=== PATIENT | male | born 1965 | race Caucasian/White ===

== ENCOUNTER → 2016-09-15 | Outpatient (CLI) | payer MEDICAID ==
--- NOTE | 2016-09-15 13:33 | RADIOLOGY REPORT (SQ) ---
EXAM DESCRIPTION: NM GASTRIC EMPTYING STUDY COMPLETED DATE/TIME: 09/15/2016 1:01 pm REASON FOR STUDY: VOMITING, GASTRO ESOPHAGEAL REFLUX DISEASE WITHOUT ESOPHAGITIS K21.9 GASTRO-ESOPH AGEAL REFLUX DISEASE WITHOUT ESOPHAGITIS R11.11 VOMITING WITHOUT NAUSEA R10.13 EPIGASTRIC PAIN COMPARISON: None. RADIONUCLIDE AND DOSE: 2 millicuries Tc-99m Sulfur Colloid. The route of agent administration: Oral. TECHNIQUE: Serial images acquired to 90 minutes with each image recorded over a 2-minute time frame. Image intensity values plotted with respect to time with linear regression algorithm. LIMITATIONS: None. FINDINGS: CALCULATED VALUE: 92.1 % at 4 hours. NORMAL VALUE: Greater than 90% emptying at 240 minutes. OTHER: No other significant finding. IMPRESSION: NORMAL GASTRIC EMPTYING. TECHNICAL DOCUMENTATION: JOB ID: [id number] [employer]- All Rights Reserved
== END ==
LOC: RAD 07:39
PROVIDERS: ATTEND Internal Medicine Gastroenterology
DX: R11.11 Vomiting without nausea (principal); K21.9 Gastro-esophageal reflux disease without esophagitis; R10.13 Epigastric pain
CPT/HCPCS: 78264; A9541

== ENCOUNTER 2017-04-09 07:10 | Emergency (ER) | payer MEDICAID ==
[2017-04-09 08:22] LABS: ABSOLUTE EOSINOPHILS # (AUTO) 0.1 10^3/uL (0.0-0.6); ABSOLUTE LYMPHOCYTES (AUTO) 1.8 10^3/uL (0.5-4.7); ABSOLUTE MONOCYTES (AUTO) 0.4 10^3/uL (0.1-1.4); ABSOLUTE NEUT (AUTO) 5.1 10^3/uL (1.7-8.2); BASOPHILS % (AUTO) 0.6 % (0-2); EOSINOPHILS % (AUTO) 1.2 % (0-6); HEMATOCRIT 40.6 % (37.9-51.0); HEMOGLOBIN 13.8 g/dL (13.5-17.0); LYMPHOCYTES % (AUTO) 23.7 % (13-45); MEAN CORPUSCULAR HEMOGLOBIN 29.5 pg (27.0-33.4); MEAN CORPUSCULAR VOLUME 87 fl (80-97); PLATELET COUNT 260 10^3/uL (150-450); RED BLOOD COUNT 4.69 10^6/uL (4.35-5.55); RED CELL DISTRIBUTION WIDTH 16.1 % (11.5-14.0); SEGMENTED NEUTROPHILS % (AUTO) 68.5 % (42-78); TOTAL CELLS COUNTED % (AUTO) 100 %; WHITE BLOOD COUNT 7.4 10^3/uL (4.0-10.5)
[2017-04-09 08:35] LABS: ALANINE AMINOTRANSFERASE 42 U/L (21-72); ALBUMIN 3.8 g/dL (3.5-5.0); ALKALINE PHOSPHATASE 115 U/L (38-126); ANION GAP 13 (5-19); ASPARTATE AMINO TRANSFERASE 31 U/L (17-59); BILIRUBIN,DIRECT 0.3 mg/dL (0.0-0.4); BILIRUBIN,TOTAL 0.8 mg/dL (0.2-1.3); BLOOD UREA NITROGEN 17 mg/dL (7-20); CALCIUM 9.1 mg/dL (8.4-10.2); CARBON DIOXIDE 28 mmol/L (22-30); CHLORIDE 103 mmol/L (98-107); CREATINE KINASE 54 U/L (55-170); GLUCOSE 120 mg/dL (75-110); MAGNESIUM 2.1 mg/dL (1.6-2.3); SODIUM 143.7 mmol/L (137-145); TOTAL PROTEIN 6.9 g/dL (6.3-8.2)
[2017-04-09 08:36] LABS: POTASSIUM 2.7 mmol/L (3.6-5.0)
[2017-04-09 08:46] LABS: CREATINE KINASE MB 0.48 ng/mL (<4.55)
[2017-04-09 08:52] LABS: TROPONIN I < 0.012 ng/mL
[2017-04-09] MEDS ORDERED: POTASSI CL 20 MEQ/50 ML RIDER 20 MEQ/50 ML RTUPB IV ONE (09:03)
[2017-04-09] MEDS ORDERED: POTASSIUM CHLORIDE 10 MEQ TABLET.SA PO ONE (09:03)
--- NOTE | 2017-04-09 09:35 | EKG REPORT ---
SEVERITY:- ABNORMAL ECG - SINUS RHYTHM NONSPECIFIC INTRAVENTRICULAR CONDUCTION DELAY : Confirmed by: Carlos Ferguson MD 09-Apr-2017 09:34:17
--- NOTE | 2017-04-09 10:30 | ER Document Report ---
ED General - General Chief Complaint: Abnormal Lab Results Stated Complaint: POSSIBLE SYNCOPAL EPISODES Time Seen by Provider: 04/09/17 07:35 TRAVEL OUTSIDE OF THE [place] IN LAST 30 DAYS: No - HPI Patient complains to provider of: Chronic low potassium Notes: Patient coming in for chronic low potassium. Patient states is been ongoing issue patient is on multiple diuretics metolazone or lactone and Lasix. Patient states he is currently taking replacement potassium however continues to be low. Patient is when he feels like he does get a little lightheaded dizzy has had syncopal episodes in the past. Upon my evaluation patient otherwise is resting calmly. Patient states he was notified by his physicians at [facility] to come to the ER last night however did not have a ride for sure that this morning. Patient states he was told to come for critically low potassium. Patient denies any fevers chills nausea vomiting diarrhea changes medications. Patient states he is waiting to see a finish rolls operator for further evaluation. - Related Data Allergies/Adverse Reactions: No Known Allergies Allergy (Unverified 11/04/14 11:42) Past Medical History - Social History Smoking Status: Never Smoker Frequency of alcohol use: Occasional Family History: Reviewed & Not Pertinent Patient has suicidal ideation: No Patient has homicidal ideation: No - Past Medical History Cardiac Medical History: Reports: Hx Heart Attack - 2012, Hx Hypertension Pulmonary Medical History: Denies: Hx Asthma Neurological Medical History: Reports: Hx Seizures - 2013. NONE SINCE. Denies: Hx Cerebrovascular Accident Renal/ Medical History: Denies: Hx Peritoneal Dialysis GI Medical History: Reports: Hx Hiatal Hernia, Hx Ulcer. Denies: Hx Hepatitis Infectious Medical History: Denies: Hx Hepatitis Past Surgical History: Denies: Hx Open Heart Surgery, Hx Pacemaker Review of Systems - Review of Systems Constitutional: Other - Low potassium EENT: No symptoms reported Cardiovascular: No symptoms reported Respiratory: No symptoms reported Gastrointestinal: No symptoms reported Genitourinary: No symptoms reported Male Genitourinary: No symptoms reported Musculoskeletal: No symptoms reported Skin: No symptoms reported Hematologic/Lymphatic: No symptoms reported Neurological/Psychological: No symptoms reported Physical Exam - Vital signs Vitals: Temp Pulse Resp BP Pulse Ox 97.5 F 81 17 127/78 H 100 04/09/17 07:12 04/09/17 07:12 04/09/17 07:12 04/09/17 07:12 04/09/17 07:12 Interpretation: Normal - General General appearance: Appears well, Alert - HEENT Head: Normocephalic, Atraumatic Eyes: Normal Pupils: PERRL - Respiratory Respiratory status: No respiratory distress Chest status: Nontender Breath sounds: Normal Chest palpation: Normal - Cardiovascular Rhythm: Regular Heart sounds: Normal auscultation Murmur: No - Abdominal Inspection: Normal Distension: No distension Bowel sounds: Normal Tenderness: Nontender Organomegaly: No organomegaly - Back Back: Normal, Nontender - Extremities General upper extremity: Normal inspection, Nontender, Normal color, Normal ROM , Normal temperature General lower extremity: Normal inspection, Nontender, Normal color, Normal ROM , Normal temperature, Normal weight bearing. No: Leslie's sign - Neurological Neuro grossly intact: Yes Cognition: Normal Orientation: AAOx4 [place] Coma Scale Eye Opening: Spontaneous [place] Coma Scale Verbal: Oriented [place] Coma Scale Motor: Obeys Commands [place] Coma Scale Total: 15 Speech: Normal Motor strength normal: LUE, RUE, LLE, RLE Sensory: Normal - Psychological Associated symptoms: Normal affect, Normal mood - Skin Skin Temperature: Warm Skin Moisture: Dry Skin Color: Normal Course - Re-evaluation Re-evalutation: 04/09/17 12:02 Potassium 2.7 EKG changes magnesium normal. Replaced orally and IV. This is a chronic issue that will likely be resolved by follow-up with a nephrology team patient does have multiple diuretics and continues to lose potassium this plan is to the patient. Patient states understanding will be discharged home. - Vital Signs Vital signs: Temp Pulse Resp BP Pulse Ox 97.5 F 81 18 116/83 100 04/09/17 07:12 04/09/17 07:12 04/09/17 11:01 04/09/17 11:01 04/09/17 11:01 - Laboratory Result Diagrams: 04/09/17 07:57 04/09/17 07:57 Laboratory results interpreted by me: 04/09/17 04/09/17 07:57 07:57 RDW 16.1 H Potassium 2.7 L* Glucose 120 H Creatine Kinase 54 L Discharge - Discharge Clinical Impression: Hypokalemia Condition: Good Disposition: HOME, SELF-CARE Instructions: Hypokalemia ([facility]) Additional Instructions: Your potassium returned today at 2.7. Your magnesium was normal. I will highly recommend that she take an [id number] multivitamin that contains magnesium. I do believe that you will need to see a finish rolls operator and adjustments of your medications between her diuretics and your potassium saving diuretics to manage her fluid overload state and chronic low potassium. Continue your medications as previously prescribed for right now. Please follow -up with your primary care provider please keep your nephrology appointment. Return to ER symptoms worsen.
[2017-04-09 13:07] VITALS: BP 104/65
== END 2017-04-09 13:07 | disposition home or self-care (01) ==
LOC: ER 07:10
DX: E87.6 Hypokalemia (principal); I10 Essential (primary) hypertension; I25.2 Old myocardial infarction; Z79.899 Other long term (current) drug therapy
CPT/HCPCS: 93005; 99284; 96365; 96366; 36415; 82553; 82550; 83735; 85025; 80053; 84484; 93010; J3480

== ENCOUNTER → 2017-08-23 | Outpatient (CLI) | payer MEDICAID ==
[2017-08-23 09:01] LABS: ABSOLUTE BASOPHILS # (AUTO) 0.1 10^3/uL (0.0-0.2); ABSOLUTE EOSINOPHILS # (AUTO) 0.1 10^3/uL (0.0-0.6); ABSOLUTE MONOCYTES (AUTO) 0.6 10^3/uL (0.1-1.4); ABSOLUTE NEUT (AUTO) 6.8 10^3/uL (1.7-8.2); BASOPHILS % (AUTO) 0.7 % (0-2); HEMATOCRIT 40.6 % (37.9-51.0); HEMOGLOBIN 13.5 g/dL (13.5-17.0); MEAN CORPUSCULAR HEMOGLOBIN 28.7 pg (27.0-33.4); MEAN CORPUSCULAR HGB CONC 33.3 g/dL (32.0-36.0); MEAN CORPUSCULAR VOLUME 86 fl (80-97); MONOCYTES % (AUTO) 6.6 % (3-13); PLATELET COUNT 287 10^3/uL (150-450); RED BLOOD COUNT 4.71 10^6/uL (4.35-5.55); RED CELL DISTRIBUTION WIDTH 14.7 % (11.5-14.0); SEGMENTED NEUTROPHILS % (AUTO) 70.7 % (42-78); TOTAL CELLS COUNTED % (AUTO) 100 %; WHITE BLOOD COUNT 9.7 10^3/uL (4.0-10.5)
[2017-08-23 09:15] LABS: ANION GAP 13 (5-19); BLOOD UREA NITROGEN 24 mg/dL (7-20); CALCIUM 9.7 mg/dL (8.4-10.2); CARBON DIOXIDE 29 mmol/L (22-30); CHLORIDE 103 mmol/L (98-107); GLUCOSE 84 mg/dL (75-110); IRON(TIBC) 48.2 ug/dL (49-181); POTASSIUM 3.7 mmol/L (3.6-5.0); SODIUM 144.9 mmol/L (137-145)
[2017-08-24 12:39] LABS: CREATININE URINE 17.6 mg/dL (Not Estab.)
[2017-08-24 13:03] LABS: MICROALBUMIN URINE <3.0 ug/mL (Not Estab.)
== END ==
LOC: OD 07:45
PROVIDERS: ATTEND Internal Medicine Nephrology
DX: N18.3 Chronic kidney disease, stage 3 (moderate) (principal); D63.8 Anemia in other chronic diseases classified elsewhere; E55.9 Vitamin D deficiency, unspecified
CPT/HCPCS: 36415; 80048; 82043; 82306; 82570; 82728; 83540; 83550; 85025

== ENCOUNTER → 2017-12-20 | Outpatient (CLI) | payer MEDICAID ==
[2017-12-20 15:46] LABS: ABSOLUTE BASOPHILS # (AUTO) 0.1 10^3/uL (0.0-0.2); ABSOLUTE EOSINOPHILS # (AUTO) 0.1 10^3/uL (0.0-0.6); ABSOLUTE LYMPHOCYTES (AUTO) 2.2 10^3/uL (0.5-4.7); ABSOLUTE MONOCYTES (AUTO) 0.6 10^3/uL (0.1-1.4); ABSOLUTE NEUT (AUTO) 5.3 10^3/uL (1.7-8.2); BASOPHILS % (AUTO) 0.7 % (0-2); EOSINOPHILS % (AUTO) 0.7 % (0-6); HEMATOCRIT 38.4 % (37.9-51.0); HEMOGLOBIN 13.2 g/dL (13.5-17.0); LYMPHOCYTES % (AUTO) 26.5 % (13-45); MEAN CORPUSCULAR HEMOGLOBIN 29.6 pg (27.0-33.4); MEAN CORPUSCULAR HGB CONC 34.2 g/dL (32.0-36.0); MEAN CORPUSCULAR VOLUME 87 fl (80-97); MONOCYTES % (AUTO) 7.5 % (3-13); PLATELET COUNT 257 10^3/uL (150-450); RED BLOOD COUNT 4.44 10^6/uL (4.35-5.55); RED CELL DISTRIBUTION WIDTH 15.1 % (11.5-14.0); SEGMENTED NEUTROPHILS % (AUTO) 64.6 % (42-78); TOTAL CELLS COUNTED % (AUTO) 100 %; WHITE BLOOD COUNT 8.2 10^3/uL (4.0-10.5)
[2017-12-20 15:49] LABS: APPEARANCE,URINE SLIGHTLY-CLOUDY; BILIRUBIN,URINE NEGATIVE (NEGATIVE); COLOR,URINE STRAW; GLUCOSE, URINE NEGATIVE (NEGATIVE); KETONES,URINE NEGATIVE (NEGATIVE); LEUKOCYTE ESTERASE,URINE NEGATIVE (NEGATIVE); NITRITE,URINE NEGATIVE (NEGATIVE); PROTEIN,URINE NEGATIVE (NEGATIVE); URINE SPECIFIC GRAVITY 1.008; UROBILINOGEN,URINE NEGATIVE mg/dL (<2.0)
[2017-12-20 16:08] LABS: ALBUMIN 3.8 g/dL (3.5-5.0); ANION GAP 11 (5-19); BLOOD UREA NITROGEN 14 mg/dL (7-20); CALCIUM 9.2 mg/dL (8.4-10.2); CARBON DIOXIDE 25 mmol/L (22-30); CHLORIDE 107 mmol/L (98-107); GLUCOSE 90 mg/dL (75-110); PHOSPHORUS 3.3 mg/dL (2.5-4.5); POTASSIUM 3.7 mmol/L (3.6-5.0); SODIUM 142.9 mmol/L (137-145)
[2017-12-22 13:38] LABS: CREATININE URINE 32.1 mg/dL (Not Estab.)
[2017-12-22 14:15] LABS: MICROALBUMIN URINE <3.0 ug/mL (Not Estab.)
== END ==
LOC: OD 15:06
PROVIDERS: ATTEND Internal Medicine Nephrology
DX: E11.22 Type 2 diabetes mellitus with diabetic chronic kidney disease (principal); I12.9 Hypertensive chronic kidney disease with stage 1 through stage 4 chronic kidney disease, or unspecified chronic kidney disease; N18.2 Chronic kidney disease, stage 2 (mild)
CPT/HCPCS: 36415; 80048; 81001; 82040; 82043; 82306; 82570; 83970; 84100; 85025

== ENCOUNTER → 2018-01-30 | Outpatient (CLI) | payer MEDICAID ==
[2018-01-30 11:06] LABS: ABSOLUTE BASOPHILS # (AUTO) 0.1 10^3/uL (0.0-0.2); ABSOLUTE LYMPHOCYTES (AUTO) 2.5 10^3/uL (0.5-4.7); ABSOLUTE MONOCYTES (AUTO) 0.8 10^3/uL (0.1-1.4); ABSOLUTE NEUT (AUTO) 6.2 10^3/uL (1.7-8.2); BASOPHILS % (AUTO) 0.7 % (0-2); EOSINOPHILS % (AUTO) 0.4 % (0-6); HEMATOCRIT 41.6 % (37.9-51.0); HEMOGLOBIN 14.4 g/dL (13.5-17.0); LYMPHOCYTES % (AUTO) 25.9 % (13-45); MEAN CORPUSCULAR HEMOGLOBIN 30.1 pg (27.0-33.4); MEAN CORPUSCULAR HGB CONC 34.6 g/dL (32.0-36.0); MEAN CORPUSCULAR VOLUME 87 fl (80-97); MONOCYTES % (AUTO) 8.5 % (3-13); PLATELET COUNT 276 10^3/uL (150-450); RED BLOOD COUNT 4.78 10^6/uL (4.35-5.55); RED CELL DISTRIBUTION WIDTH 13.8 % (11.5-14.0); SEGMENTED NEUTROPHILS % (AUTO) 64.5 % (42-78); TOTAL CELLS COUNTED % (AUTO) 100 %; WHITE BLOOD COUNT 9.6 10^3/uL (4.0-10.5)
[2018-01-30 11:25] LABS: ALANINE AMINOTRANSFERASE 25 U/L (21-72); ALBUMIN 4.6 g/dL (3.5-5.0); ALKALINE PHOSPHATASE 110 U/L (38-126); ANION GAP 16 (5-19); ASPARTATE AMINO TRANSFERASE 25 U/L (17-59); BILIRUBIN,DIRECT 0.3 mg/dL (0.0-0.4); BILIRUBIN,TOTAL 0.9 mg/dL (0.2-1.3); BLOOD UREA NITROGEN 25 mg/dL (7-20); CALCIUM 9.9 mg/dL (8.4-10.2); CARBON DIOXIDE 31 mmol/L (22-30); CHLORIDE 94 mmol/L (98-107); CHOLESTEROL 175.33 mg/dL (0-200); GLUCOSE 96 mg/dL (75-110); POTASSIUM 3.4 mmol/L (3.6-5.0); SODIUM 140.9 mmol/L (137-145); TOTAL PROTEIN 8.4 g/dL (6.3-8.2); TRIGLYCERIDES 145 mg/dL (<150)
[2018-01-30 11:36] LABS: DIRECT LDL 100 mg/dL (<100)
[2018-01-30 11:42] LABS: FREE T4 (FREE THYROXINE) 1.19 ng/dL (0.78-2.19)
[2018-01-30 11:56] LABS: THYROID STIMULATING HORMONE 6.67 uIU/mL (0.47-4.68)
== END ==
LOC: OD 10:42
PROVIDERS: ATTEND Physician Assistant
DX: F43.12 Post-traumatic stress disorder, chronic (principal); Z79.899 Other long term (current) drug therapy
CPT/HCPCS: 36415; 80053; 80061; 80164; 84439; 84443; 85025

== ENCOUNTER → 2018-03-15 | Outpatient (CLI) | payer MEDICAID ==
[2018-03-15 10:05] LABS: ABSOLUTE BASOPHILS # (AUTO) 0.1 10^3/uL (0.0-0.2); ABSOLUTE EOSINOPHILS # (AUTO) 0.1 10^3/uL (0.0-0.6); ABSOLUTE LYMPHOCYTES (AUTO) 2.1 10^3/uL (0.5-4.7); ABSOLUTE MONOCYTES (AUTO) 0.5 10^3/uL (0.1-1.4); ABSOLUTE NEUT (AUTO) 4.7 10^3/uL (1.7-8.2); BASOPHILS % (AUTO) 0.7 % (0-2); EOSINOPHILS % (AUTO) 1.1 % (0-6); HEMOGLOBIN 14.1 g/dL (13.5-17.0); LYMPHOCYTES % (AUTO) 28.3 % (13-45); MEAN CORPUSCULAR HEMOGLOBIN 30.1 pg (27.0-33.4); MEAN CORPUSCULAR HGB CONC 34.3 g/dL (32.0-36.0); MEAN CORPUSCULAR VOLUME 88 fl (80-97); MONOCYTES % (AUTO) 6.9 % (3-13); PLATELET COUNT 199 10^3/uL (150-450); RED BLOOD COUNT 4.68 10^6/uL (4.35-5.55); RED CELL DISTRIBUTION WIDTH 14.5 % (11.5-14.0); TOTAL CELLS COUNTED % (AUTO) 100 %; WHITE BLOOD COUNT 7.4 10^3/uL (4.0-10.5)
[2018-03-15 10:26] LABS: ALANINE AMINOTRANSFERASE 19 U/L (21-72); ALBUMIN 4.3 g/dL (3.5-5.0); ALKALINE PHOSPHATASE 78 U/L (38-126); ANION GAP 11 (5-19); ASPARTATE AMINO TRANSFERASE 21 U/L (17-59); BILIRUBIN,DIRECT 0.2 mg/dL (0.0-0.4); BILIRUBIN,TOTAL 0.6 mg/dL (0.2-1.3); BLOOD UREA NITROGEN 24 mg/dL (7-20); CALCIUM 9.3 mg/dL (8.4-10.2); CARBON DIOXIDE 29 mmol/L (22-30); CHLORIDE 102 mmol/L (98-107); GLUCOSE 90 mg/dL (75-110); POTASSIUM 3.8 mmol/L (3.6-5.0); SODIUM 142.4 mmol/L (137-145); TOTAL PROTEIN 7.6 g/dL (6.3-8.2)
== END ==
LOC: OD 09:10
PROVIDERS: ATTEND Physician Assistant
DX: F25.0 Schizoaffective disorder, bipolar type (principal)
CPT/HCPCS: 36415; 80053; 80164; 85025

== ENCOUNTER → 2018-07-28 | Outpatient (CLI) | payer MEDICAID ==
[2018-07-28 12:43] LABS: ABSOLUTE EOSINOPHILS # (AUTO) 0.1 10^3/uL (0.0-0.6); ABSOLUTE LYMPHOCYTES (AUTO) 2.4 10^3/uL (0.5-4.7); ABSOLUTE MONOCYTES (AUTO) 0.7 10^3/uL (0.1-1.4); ABSOLUTE NEUT (AUTO) 4.6 10^3/uL (1.7-8.2); BASOPHILS % (AUTO) 0.5 % (0-2); EOSINOPHILS % (AUTO) 1.3 % (0-6); HEMATOCRIT 44.9 % (37.9-51.0); HEMOGLOBIN 15.2 g/dL (13.5-17.0); LYMPHOCYTES % (AUTO) 30.4 % (13-45); MEAN CORPUSCULAR HEMOGLOBIN 29.1 pg (27.0-33.4); MEAN CORPUSCULAR HGB CONC 33.9 g/dL (32.0-36.0); MEAN CORPUSCULAR VOLUME 86 fl (80-97); MONOCYTES % (AUTO) 8.9 % (3-13); PLATELET COUNT 223 10^3/uL (150-450); RED BLOOD COUNT 5.23 10^6/uL (4.35-5.55); RED CELL DISTRIBUTION WIDTH 14.4 % (11.5-14.0); SEGMENTED NEUTROPHILS % (AUTO) 58.9 % (42-78); TOTAL CELLS COUNTED % (AUTO) 100 %; WHITE BLOOD COUNT 7.8 10^3/uL (4.0-10.5)
[2018-07-28 13:07] LABS: ANION GAP 16 (5-19); BLOOD UREA NITROGEN 31 mg/dL (7-20); CARBON DIOXIDE 29 mmol/L (22-30); CHLORIDE 98 mmol/L (98-107); GLUCOSE 113 mg/dL (75-110); POTASSIUM 3.4 mmol/L (3.6-5.0); SODIUM 142.8 mmol/L (137-145)
== END ==
LOC: OD 11:57
PROVIDERS: ATTEND Internal Medicine Nephrology
DX: N18.3 Chronic kidney disease, stage 3 (moderate) (principal); D63.8 Anemia in other chronic diseases classified elsewhere; E87.6 Hypokalemia
CPT/HCPCS: 36415; 80048; 84132; 85025

== ENCOUNTER 2018-09-01 13:25 | Emergency (ER) | payer MEDICAID ==
--- NOTE | 2018-09-01 13:40 | ER Document Report ---
ED Medical Screen (RME) - General Chief Complaint: Abnormal Lab Results Stated Complaint: ABNORMAL LABS Time Seen by Provider: 09/01/18 13:38 Primary Care Provider: ART LOZOYA MD [Primary Care Provider] - Follow up as needed Notes: Patient is a 53-year-old male sent to the emergency department by his primary care provider for routine labs being drawn. He does take potassium on a daily basis and he is unsure why his potassium continues to be low. Patient's denied all complaints to include chest pain, shortness of breath, nausea, vomiting. GENERAL: Alert, interacts well. No acute distress. LUNGS: Clear to auscultation bilaterally, no wheezes, rales, or rhonchi. No respiratory distress. I have greeted and performed a rapid initial assessment of this patient. A comprehensive ED assessment and evaluation of the patient, analysis of test results and completion of the medical decision making process will be conducted by additional ED providers. This medical record was dictated with voice recognizing software. There may be grammatical, syntax errors that are unintended. TRAVEL OUTSIDE OF THE [place] IN LAST 30 DAYS: No - Related Data Allergies/Adverse Reactions: No Known Allergies Allergy (Verified 09/01/18 13:25) Past Medical History - Past Medical History Cardiac Medical History: Reports: Hx Heart Attack - 2012, Hx Hypertension Pulmonary Medical History: Denies: Hx Asthma Neurological Medical History: Reports: Hx Seizures - 2012. NONE SINCE. Denies: Hx Cerebrovascular Accident Renal/ Medical History: Denies: Hx Peritoneal Dialysis GI Medical History: Reports: Hx Hiatal Hernia, Hx Ulcer. Denies: Hx Hepatitis Infectious Medical History: Denies: Hx Hepatitis Past Surgical History: Denies: Hx Open Heart Surgery, Hx Pacemaker Physical Exam - Vital signs Vitals: Temp Pulse Resp BP Pulse Ox 98.4 F 91 16 127/82 H 96 09/01/18 13:25 09/01/18 13:25 09/01/18 13:25 09/01/18 13:25 09/01/18 13:25 Course - Vital Signs Vital signs: Temp Pulse Resp BP Pulse Ox 98.4 F 91 16 127/82 H 96 09/01/18 13:25 09/01/18 13:25 09/01/18 13:25 09/01/18 13:25 09/01/18 13:25 Doctor's Discharge - Discharge Referrals: ART LOZOYA MD [Primary Care Provider] - Follow up as needed
[2018-09-01 14:08] LABS: ABSOLUTE BASOPHILS # (AUTO) 0.1 10^3/uL (0.0-0.2); ABSOLUTE EOSINOPHILS # (AUTO) 0.1 10^3/uL (0.0-0.6); ABSOLUTE LYMPHOCYTES (AUTO) 2.6 10^3/uL (0.5-4.7); ABSOLUTE MONOCYTES (AUTO) 1.2 10^3/uL (0.1-1.4); ABSOLUTE NEUT (AUTO) 7.1 10^3/uL (1.7-8.2); BASOPHILS % (AUTO) 0.7 % (0-2); EOSINOPHILS % (AUTO) 0.7 % (0-6); HEMOGLOBIN 13.7 g/dL (13.5-17.0); LYMPHOCYTES % (AUTO) 23.3 % (13-45); MEAN CORPUSCULAR HEMOGLOBIN 29.8 pg (27.0-33.4); MEAN CORPUSCULAR HGB CONC 35.2 g/dL (32.0-36.0); MEAN CORPUSCULAR VOLUME 85 fl (80-97); MONOCYTES % (AUTO) 10.5 % (3-13); PLATELET COUNT 250 10^3/uL (150-450); RED BLOOD COUNT 4.59 10^6/uL (4.35-5.55); RED CELL DISTRIBUTION WIDTH 14.7 % (11.5-14.0); SEGMENTED NEUTROPHILS % (AUTO) 64.8 % (42-78); TOTAL CELLS COUNTED % (AUTO) 100 %
[2018-09-01 14:25] LABS: ALANINE AMINOTRANSFERASE 45 U/L (21-72); ALBUMIN 4.4 g/dL (3.5-5.0); ALKALINE PHOSPHATASE 78 U/L (38-126); ANION GAP 14 (5-19); ASPARTATE AMINO TRANSFERASE 29 U/L (17-59); BILIRUBIN,DIRECT 0.3 mg/dL (0.0-0.4); BILIRUBIN,TOTAL 0.5 mg/dL (0.2-1.3); BLOOD UREA NITROGEN 25 mg/dL (7-20); CALCIUM 9.6 mg/dL (8.4-10.2); CARBON DIOXIDE 32 mmol/L (22-30); CHLORIDE 98 mmol/L (98-107); GLUCOSE 105 mg/dL (75-110); SODIUM 143.7 mmol/L (137-145); TOTAL PROTEIN 7.4 g/dL (6.3-8.2)
[2018-09-01 14:37] LABS: POTASSIUM 2.9 mmol/L (3.6-5.0)
--- NOTE | 2018-09-01 14:40 | ER Document Report ---
ED General <MEHRAN PIKE - Last Filed: 09/01/18 22:55> - General TRAVEL OUTSIDE OF THE [place] IN LAST 30 DAYS: No <JESUS AMOS - Last Filed: 09/02/18 08:12> - General Chief Complaint: Abnormal Lab Results Stated Complaint: ABNORMAL LABS Time Seen by Provider: 09/01/18 13:38 Primary Care Provider: ART LOZOYA MD [Primary Care Provider] - Follow up as needed Notes: Patient is a 53-year-old male with a history of diabetes and hypertension who presents to the emergency department with chief complaint of abnormal labs. He states he was having routine lab work drawn today that was ordered by Dr. Lozoya, and he was called for a low potassium level. Patient states he does have acute stage III kidney disease has had a history of low potassium in the past before. Patient denies chest pain, palpitations, shortness of breath. Pa tient denies nausea vomiting or diarrhea. Patient denies abdominal pain. (JESUS AMOS) - Related Data Allergies/Adverse Reactions: No Known Allergies Allergy (Verified 09/01/18 13:25) Past Medical History - General Information source: Patient - Social History Smoking Status: Never Smoker Chew tobacco use (# tins/day): No Frequency of alcohol use: None Drug Abuse: None Family History: Reviewed & Not Pertinent Patient has suicidal ideation: No Patient has homicidal ideation: No - Past Medical History Cardiac Medical History: Reports: Hx Heart Attack - 2012, Hx Hypertension Pulmonary Medical History: Denies: Hx Asthma EENT Medical History: Reports: None Neurological Medical History: Reports: Hx Seizures - 2012. NONE SINCE. Denies: Hx Cerebrovascular Accident Endocrine Medical History: Reports: Hx Diabetes Mellitus Type 2 Renal/ Medical History: Reports: None. Denies: Hx Peritoneal Dialysis Malignancy Medical History: Reports None GI Medical History: Reports: Hx Hiatal Hernia, Hx Ulcer. Denies: Hx Hepatitis Musculoskeletal Medical History: Reports None Skin Medical History: Reports None Psychiatric Medical History: Reports: None Traumatic Medical History: Reports: None Infectious Medical History: Reports: None. Denies: Hx Hepatitis Past Surgical History: Reports: Hx Cholecystectomy. Denies: Hx Open Heart Surgery, Hx Pacemaker <JESUS AMOS - Last Filed: 09/02/18 08:12> Review of Systems - Review of Systems Constitutional: No symptoms reported EENT: No symptoms reported Cardiovascular: No symptoms reported Respiratory: No symptoms reported Gastrointestinal: No symptoms reported Genitourinary: No symptoms reported Male Genitourinary: No symptoms reported Musculoskeletal: No symptoms reported Skin: No symptoms reported Hematologic/Lymphatic: No symptoms reported Neurological/Psychological: No symptoms reported <JESUS AMOS - Last Filed: 09/02/18 08:12> Physical Exam - Vital signs Interpretation: Normal <JESUS AMOS - Last Filed: 09/02/18 08:12> - Vital signs Vitals: Temp Pulse Resp BP Pulse Ox 98.4 F 91 16 127/82 H 96 09/01/18 13:25 09/01/18 13:25 09/01/18 13:25 09/01/18 13:25 09/01/18 13:25 - Notes Notes: GENERAL: Well-appearing, well-nourished and in no acute distress. HEAD: Atraumatic, normocephalic. EYES: Pupils equal round and reactive to light, extraocular movements intact, sclera anicteric, conjunctiva are normal. ENT: Nares patent, oropharynx clear without exudates. Moist mucous membranes. NECK: Normal range of motion, supple without lymphadenopathy or JVD. LUNGS: Breath sounds clear to auscultation bilaterally and equal. No wheezes rales or rhonchi. HEART: Regular rate and rhythm without murmurs, rubs or gallops. ABDOMEN: Soft, nontender, normoactive bowel sounds. No guarding, no rebound. No masses appreciated. BACK: No cervical, thoracic, lumbar midline tenderness. No saddle anesthesia, normal distal neurovascular exam. GENITOURINARY: Deferred. EXTREMITIES: Normal range of motion, no pitting or edema. No clubbing or cyanosis. NEUROLOGICAL: Cranial nerves II through XII grossly intact. Normal speech, normal gait. PSYCH: Normal mood, normal affect. SKIN: Warm, Dry, normal turgor, no rashes or lesions noted (JESUS AMOS) Course - Laboratory Result Diagrams: 09/01/18 13:40 09/01/18 21:20 <BERNIE PIKEAN - Last Filed: 09/01/18 22:55> - Laboratory Result Diagrams: 09/01/18 13:40 09/01/18 21:20 <JESUS AMOS - Last Filed: 09/02/18 08:12> - Re-evaluation Re-evalutation: 09/01/18 22:49 Initially the repeat of potassium was 2.7 from initial 2.9 despite having received 40 mEq IV and 40 mEq p.o. of potassium. His magnesium was 2.2 and he was given magnesium here. I feel like this is a lab error and I asked this to be repeated. Repeated showing 3.0. Repeat EKG shows QTC of 450 which is improved from initial 460s. Patient has remained asymptomatic during his time here. I discussed with patient, he states he absolutely will not consider admission, he wants to go home, he has had this many times when he is used to it. I spoke to him that I am concerned that his Lasix is the culprit and he should probably hold this temporarily because he does not have a CHF history reported to me. Patient states he was told this in the past, he does not like stopping his Lasix because he gets "swelling everywhere", he refused to do so. He does state that he will double up on his potassium doses at home temporarily and get this rechecked. He is asking for discharge. I did try to call Dr. Lozoya, however at this late time she is not available like she was earlier in the day. I did discuss with Dr. Dorsey, because the potassium is 3.0, EKG is reassuring, he is asymptomatic, and patient agrees to follow-up with specific instructions, patient will be discharged with return precautions. He was given an additional 40 mEq PO potassium before discharge. Patient states understanding and agreement. (MEHRAN PIKE) 09/01/18 14:40 Patient sitting upright on stretcher in no acute distress. He currently denies complaints. 09/01/18 15:[address] Lozoya to report repeat potassium of 2.9, she states that patient has previously been on Lokelma PO that another physician had given him. She recommends stopping the Lokelma since it can drop the potassium level. She recommends replacing potassium via IV and oral and to be at least 3.4 prior to discharge with no EKG changes. She also recommends continuing his potassium supplements as previously prescribed. Will replace potassium IV and orally, then recheck. 09/01/18 18:12 Patient is tolerating IV potassium, denies complaints at this time, is eating. We will continue to monitor and once IV infusion is complete we will recheck the potassium level. (JESUS AMOS) - Vital Signs Vital signs: Temp Pulse Resp BP Pulse Ox 98.4 F 91 23 H 116/70 97 09/01/18 13:25 09/01/18 13:25 09/01/18 22:01 09/01/18 22:01 09/01/18 22:01 - Laboratory Laboratory results interpreted by me: 09/01/18 09/01/18 09/01/18 13:40 13:40 20:01 WBC 11.0 H RDW 14.7 H Potassium 2.9 L* 2.7 L* Carbon Dioxide 32 H 31 H BUN 25 H 23 H Creatinine 1.46 H 1.35 H Est GFR (Non-Af Amer) 50 L 55 L 09/01/18 21:20 WBC RDW Potassium 3.0 L* Carbon Dioxide 32 H BUN 23 H Creatinine 1.35 H Est GFR (Non-Af Amer) 55 L - Diagnostic Test Radiology results interpreted by me: 09/01/18 15:50 Patient's EKG shows a sinus rhythm with a rate of 75, RI intervals 168, QT is 404, QTc is 452. Has a left axis deviation. There are no ST segment changes in consecutive leads. There are t-wave depression or elevation. (JESUS AMOS) Discharge <MEHRAN PIKE - Last Filed: 09/01/18 22:55> <JESUS AMOS - Last Filed: 09/02/18 08:12> - Discharge Clinical Impression: Hypokalemia, Chronic kidney disease (CKD), stage III (moderate) Condition: Stable Disposition: HOME, SELF-CARE Additional Instructions: Today you were in the emergency department with a chief complaint of low potassium. Your repeat potassium level was 3.0. We did speak with Dr. Lozoya your medical assistant who recommended you stay in the emergency department and receive IV potassium replacement. She recommends that you continue taking your oral potassium supplements as previously prescribed and to stop the Lokelma. She is concerned that different doctors are prescribing certain medications that may actually lower your potassium level - such as Lokelma. Your Lasix is also most likely a part of your declining potassium. Your EKG is good at this time. Please have follow-up with your primary care physician or your medical assistant on Tuesday to have repeat lab work. Increase your potassium at home temporarily as discussed. Return to the emergency department immediately if you develop weakness, muscle twitching or cramping, palpitations or any new or alarming symptoms. Hypokalemia You have an abnormally decreased level of serum potassium. Hypokalemia may cause weakness, fatigue, or heart rhythm abnormalities. Sometimes there are no symptoms at all. Usually, low serum potassium is due to taking diuretics (water pills). It can also be due to excessive vomiting or diarrhea. If no obvious cause is evident, further evaluation will be necessary. Treatment is usually oral potassium supplements. Take these exactly as prescribed. You may also want to select foods which are naturally high in potassium -- fruits (such as bananas, cantaloupe, grapes, oranges, prunes, tomatoes), fresh vegetables (potatoes, spinach, beans, peas), orange or tomato juice, tomato pasta sauce, milk, fish (halibut, tuna, salmon, agapito) A follow-up blood test is usually performed to assure that the potassium is returning to normal. Call the physician if you suffer severe weakness, muscle twitching or cramping, palpitations (pounding or irregular heartbeat), or any other new or alarming symptoms. Referrals: ART LOZOYA MD [Primary Care Provider] - Follow up as needed
[2018-09-01] MEDS ORDERED: POTASSIUM CHLORIDE 10 MEQ CAPSULE.ER PO ONE (15:29)
[2018-09-01] MEDS ORDERED: MAGNESIUM SULFATE/D5W 1 GM/100 ML RTUPB IV SCH (15:30)
[2018-09-01] MEDS: POTASSI CL 20 MEQ/50 ML RIDER 20 MEQ/50 ML RTUPB IV SCH ×2 (16:52→18:15)
[2018-09-01 20:48] LABS: ANION GAP 10 (5-19); BLOOD UREA NITROGEN 23 mg/dL (7-20); CALCIUM 8.7 mg/dL (8.4-10.2); CARBON DIOXIDE 31 mmol/L (22-30); CHLORIDE 99 mmol/L (98-107); GLUCOSE 100 mg/dL (75-110); SODIUM 139.8 mmol/L (137-145)
[2018-09-01 20:53] LABS: POTASSIUM 2.7 mmol/L (3.6-5.0)
[2018-09-01 22:00] LABS: ANION GAP 11 (5-19); BLOOD UREA NITROGEN 23 mg/dL (7-20); CALCIUM 9.2 mg/dL (8.4-10.2); CARBON DIOXIDE 32 mmol/L (22-30); CHLORIDE 98 mmol/L (98-107); GLUCOSE 102 mg/dL (75-110); SODIUM 140.7 mmol/L (137-145)
--- NOTE | 2018-09-01 22:17 | EKG REPORT ---
SEVERITY:- NORMAL ECG - SINUS RHYTHM : Confirmed by: Carlos Ferguson MD 01-Sep-2018 22:16:58
[2018-09-01] MEDS ORDERED: POTASSIUM CHLORIDE 20 MEQ PACKET PO ONE (22:47)
[2018-09-02 04:12] VITALS: BP 116/70
== END 2018-09-01 22:30 | disposition home or self-care (01) ==
LOC: ER 13:25
DX: E87.6 Hypokalemia (principal); I12.9 Hypertensive chronic kidney disease with stage 1 through stage 4 chronic kidney disease, or unspecified chronic kidney disease; E11.22 Type 2 diabetes mellitus with diabetic chronic kidney disease; N18.3 Chronic kidney disease, stage 3 (moderate); Z79.899 Other long term (current) drug therapy
CPT/HCPCS: 93005; 99283; 96365; 96367; 36415; 83735; 85025; 80053; 93010; J3475; J3480

== ENCOUNTER → 2018-09-01 | Outpatient (CLI) | payer MEDICAID ==
[2018-09-01 12:38] LABS: ALBUMIN 4.3 g/dL (3.5-5.0); ANION GAP 15 (5-19); BLOOD UREA NITROGEN 25 mg/dL (7-20); CALCIUM 9.7 mg/dL (8.4-10.2); CARBON DIOXIDE 29 mmol/L (22-30); CHLORIDE 99 mmol/L (98-107); GLUCOSE 125 mg/dL (75-110); PHOSPHORUS 2.2 mg/dL (2.5-4.5); SODIUM 142.7 mmol/L (137-145)
[2018-09-01 12:43] LABS: POTASSIUM 2.5 mmol/L (3.6-5.0)
[2018-09-01 12:44] LABS: APPEARANCE,URINE CLEAR; BILIRUBIN,URINE NEGATIVE (NEGATIVE); COLOR,URINE YELLOW; GLUCOSE, URINE NEGATIVE (NEGATIVE); KETONES,URINE NEGATIVE (NEGATIVE); LEUKOCYTE ESTERASE,URINE NEGATIVE (NEGATIVE); NITRITE,URINE NEGATIVE (NEGATIVE); PROTEIN,URINE NEGATIVE (NEGATIVE); URINE SPECIFIC GRAVITY 1.009; UROBILINOGEN,URINE NEGATIVE mg/dL (<2.0)
[2018-09-02 14:37] LABS: MICROALBUMIN URINE 5.4 ug/mL (Not Estab.)
== END ==
LOC: OD 11:52
PROVIDERS: ATTEND Internal Medicine Nephrology
DX: I12.9 Hypertensive chronic kidney disease with stage 1 through stage 4 chronic kidney disease, or unspecified chronic kidney disease (principal); N18.3 Chronic kidney disease, stage 3 (moderate); E11.22 Type 2 diabetes mellitus with diabetic chronic kidney disease
CPT/HCPCS: 36415; 80069; 81001; 82043; 82306; 82570; 83970

== ENCOUNTER → 2018-09-08 | Outpatient (CLI) | payer MEDICAID | LOC: OD 11:06 | PROVIDERS: ATTEND Internal Medicine Nephrology | DX: E87.6 Hypokalemia (principal); Z13.21 Encounter for screening for nutritional disorder | CPT/HCPCS: 36415; 83735; 84132 ==

== ENCOUNTER → 2018-12-18 | Outpatient (CLI) | payer MEDICAID ==
[2018-12-18 14:22] LABS: ANION GAP 19 (5-19); BLOOD UREA NITROGEN 31 mg/dL (7-20); CALCIUM 9.8 mg/dL (8.4-10.2); CARBON DIOXIDE 27 mmol/L (22-30); CHLORIDE 92 mmol/L (98-107); GLUCOSE 132 mg/dL (75-110)
[2018-12-18 14:29] LABS: POTASSIUM 2.6 mmol/L (3.6-5.0)
== END ==
LOC: OD 13:24
PROVIDERS: ATTEND Internal Medicine Nephrology
DX: E11.22 Type 2 diabetes mellitus with diabetic chronic kidney disease (principal); I12.9 Hypertensive chronic kidney disease with stage 1 through stage 4 chronic kidney disease, or unspecified chronic kidney disease; N18.3 Chronic kidney disease, stage 3 (moderate); E87.6 Hypokalemia
CPT/HCPCS: 36415; 80048; 83735

== ENCOUNTER → 2018-12-21 | Outpatient (CLI) | payer MEDICAID | LOC: OD 09:35 | PROVIDERS: ATTEND Internal Medicine Nephrology | DX: E87.6 Hypokalemia (principal) | CPT/HCPCS: 36415; 84132 ==

== ENCOUNTER → 2019-01-26 | Outpatient (CLI) | payer MEDICAID ==
[2019-01-26 14:38] LABS: ANION GAP 13 (5-19); BLOOD UREA NITROGEN 25 mg/dL (7-20); CALCIUM 9.8 mg/dL (8.4-10.2); CARBON DIOXIDE 32 mmol/L (22-30); CHLORIDE 96 mmol/L (98-107); GLUCOSE 97 mg/dL (75-110)
[2019-01-26 14:44] LABS: POTASSIUM 2.6 mmol/L (3.6-5.0)
== END ==
LOC: OD 13:33
PROVIDERS: ATTEND Internal Medicine Nephrology
DX: I12.9 Hypertensive chronic kidney disease with stage 1 through stage 4 chronic kidney disease, or unspecified chronic kidney disease (principal); N18.3 Chronic kidney disease, stage 3 (moderate); E11.22 Type 2 diabetes mellitus with diabetic chronic kidney disease; E87.6 Hypokalemia
CPT/HCPCS: 36415; 80048; 83735

== ENCOUNTER → 2019-01-29 | Outpatient (CLI) | payer MEDICAID | LOC: OD 14:04 | PROVIDERS: ATTEND Internal Medicine Nephrology | DX: E87.6 Hypokalemia (principal) | CPT/HCPCS: 36415; 84132 ==

== ENCOUNTER → 2019-04-23 | Outpatient (CLI) | payer MEDICAID ==
[2019-04-23 13:25] LABS: ABSOLUTE BASOPHILS # (AUTO) 0.1 10^3/uL (0.0-0.2); ABSOLUTE LYMPHOCYTES (AUTO) 2.2 10^3/uL (0.5-4.7); ABSOLUTE MONOCYTES (AUTO) 0.9 10^3/uL (0.1-1.4); ABSOLUTE NEUT (AUTO) 8.3 10^3/uL (1.7-8.2); BASOPHILS % (AUTO) 0.6 % (0-2); EOSINOPHILS % (AUTO) 0.2 % (0-6); HEMATOCRIT 45.4 % (37.9-51.0); HEMOGLOBIN 15.6 g/dL (13.5-17.0); LYMPHOCYTES % (AUTO) 19.4 % (13-45); MEAN CORPUSCULAR HEMOGLOBIN 29.3 pg (27.0-33.4); MEAN CORPUSCULAR HGB CONC 34.5 g/dL (32.0-36.0); MEAN CORPUSCULAR VOLUME 85 fl (80-97); MONOCYTES % (AUTO) 7.6 % (3-13); PLATELET COUNT 272 10^3/uL (150-450); RED BLOOD COUNT 5.34 10^6/uL (4.35-5.55); RED CELL DISTRIBUTION WIDTH 14.8 % (11.5-14.0); SEGMENTED NEUTROPHILS % (AUTO) 72.2 % (42-78); TOTAL CELLS COUNTED % (AUTO) 100 %; WHITE BLOOD COUNT 11.4 10^3/uL (4.0-10.5)
[2019-04-23 13:40] LABS: ALBUMIN 4.6 g/dL (3.5-5.0); ANION GAP 16 (5-19); BLOOD UREA NITROGEN 20 mg/dL (7-20); CALCIUM 9.7 mg/dL (8.4-10.2); CARBON DIOXIDE 28 mmol/L (22-30); CHLORIDE 95 mmol/L (98-107); GLUCOSE 97 mg/dL (75-110); PHOSPHORUS 3.3 mg/dL (2.5-4.5)
[2019-04-23 13:43] LABS: POTASSIUM 2.6 mmol/L (3.6-5.0)
[2019-04-23 14:26] LABS: APPEARANCE,URINE CLEAR; BILIRUBIN,URINE NEGATIVE (NEGATIVE); COLOR,URINE YELLOW; GLUCOSE, URINE NEGATIVE (NEGATIVE); KETONES,URINE NEGATIVE (NEGATIVE); LEUKOCYTE ESTERASE,URINE NEGATIVE (NEGATIVE); NITRITE,URINE NEGATIVE (NEGATIVE); PROTEIN,URINE NEGATIVE (NEGATIVE); URINE SPECIFIC GRAVITY 1.011; UROBILINOGEN,URINE NEGATIVE mg/dL (<2.0)
== END ==
LOC: OD 12:48
PROVIDERS: ATTEND Internal Medicine Nephrology
DX: I12.9 Hypertensive chronic kidney disease with stage 1 through stage 4 chronic kidney disease, or unspecified chronic kidney disease (principal); N18.3 Chronic kidney disease, stage 3 (moderate); E11.22 Type 2 diabetes mellitus with diabetic chronic kidney disease; E87.6 Hypokalemia
CPT/HCPCS: 36415; 80069; 81001; 82043; 82306; 82570; 83735; 83970; 85025

== ENCOUNTER → 2019-04-30 | Outpatient (CLI) | payer MEDICAID | LOC: OD 09:55 | PROVIDERS: ATTEND Internal Medicine Nephrology | DX: E87.6 Hypokalemia (principal) | CPT/HCPCS: 36415; 84132 ==

== ENCOUNTER → 2019-05-03 | Outpatient (CLI) | payer MEDICAID | LOC: OD 10:31 | PROVIDERS: ATTEND Internal Medicine Nephrology | DX: E87.6 Hypokalemia (principal) | CPT/HCPCS: 36415; 84132 ==

== ENCOUNTER → 2019-05-07 | Outpatient (CLI) | payer MEDICAID ==
--- NOTE | 2019-05-08 11:45 | XCELERA REPORT ---
[address] [address] Lower Extremity Venous Evaluation Procedure: A bilateral duplex scan of the lower extremity veins was performed. The evaluation included responses to compression and other maneuvers with patient in the supine and standing positions to assess venous insufficiency. Right Sided Venous Evaluation Deep venous system evaluation shows patent veins with no significant reflux identified. Sapheno Femoral junction: no reflux. Greater Saphenous vein, Proximal thigh: reflux: 4.08 seconds reflux. 8.3 mm diameter. Greater Saphenous vein, mid thigh: reflux:4.17 seconds reflux. 8 mm diameter. Greater Saphenous vein, Distal thigh: reflux:1.879seconds reflux. 4.2 mm diameter. Greater Saphenous vein, Proximal below knee: reflux: 3.4 seconds reflux. 5.8 mm diameter. Greater Saphenous vein, Mid below knee: reflux: 2.15 seconds reflux. 4.9 mm diameter. Greater Saphenous vein, Distal below knee: reflux: 1.995 seconds reflux. 4.5 mm diameter. No significant Perforators identified. Left Sided Venous Evaluation Deep venous system evaluation shows patent veins with no significant reflux identified. Sapheno Femoral junction: 1.61seconds reflux. 9.9 mm diameter. Greater Saphenous vein, Proximal thigh: reflux: 9.4mm diameter. Greater Saphenous vein, mid thigh: reflux:1.98 seconds reflux. 9.2 mm diameter. Greater Saphenous vein, Distal thigh: reflux: 2.97 seconds reflux. 8.4 mm diameter. Greater Saphenous vein, Proximal below knee: reflux: 1.76 seconds reflux.8.4 mm diameter. Greater Saphenous vein, Mid below knee: reflux: 1.129 seconds reflux. 4.9 mm diameter. Greater Saphenous vein, Distal below knee: reflux: . 3.5 mm diameter. No significant Perforators identified. Interpretation Summary No duplex evidence of DVT or obstruction in the bilateral lower extremities. Extensive, clinically significant Greater Saphenous reflux, in bilateral lower extremities. Name: DEMETRIA CROWLEY JR Age: 53 yrs Gender: Male : 1965 Patient Status: Outpatient Patient Location: Study Date: 05/07/2019 10:13 AM Reason For Study: VARICOSE VEINS WITH SYMPTOMS Ordering Physician: RAFAELA CASTELAN Performed By: Anastasia Agarwal : RAFAELA CASTELAN > Rafaela Castelan
== END ==
LOC: SP 10:28
PROVIDERS: ATTEND Surgery
DX: I83.93 Asymptomatic varicose veins of bilateral lower extremities (principal)
CPT/HCPCS: 93970

== ENCOUNTER → 2019-05-10 | Outpatient (CLI) | payer MEDICAID | LOC: OD 11:27 | PROVIDERS: ATTEND Internal Medicine Nephrology | DX: E87.6 Hypokalemia (principal) | CPT/HCPCS: 36415; 84132 ==

== ENCOUNTER → 2019-05-17 | Outpatient (CLI) | payer MEDICAID ==
[2019-05-17 10:35] LABS: ABSOLUTE BASOPHILS # (AUTO) 0.1 10^3/uL (0.0-0.2); ABSOLUTE EOSINOPHILS # (AUTO) 0.1 10^3/uL (0.0-0.6); ABSOLUTE LYMPHOCYTES (AUTO) 2.1 10^3/uL (0.5-4.7); ABSOLUTE MONOCYTES (AUTO) 0.8 10^3/uL (0.1-1.4); ABSOLUTE NEUT (AUTO) 7.3 10^3/uL (1.7-8.2); BASOPHILS % (AUTO) 0.5 % (0-2); HEMATOCRIT 46.6 % (37.9-51.0); HEMOGLOBIN 15.4 g/dL (13.5-17.0); LYMPHOCYTES % (AUTO) 20.5 % (13-45); MEAN CORPUSCULAR HGB CONC 33.1 g/dL (32.0-36.0); MEAN CORPUSCULAR VOLUME 87 fl (80-97); MONOCYTES % (AUTO) 7.7 % (3-13); PLATELET COUNT 236 10^3/uL (150-450); RED BLOOD COUNT 5.33 10^6/uL (4.35-5.55); RED CELL DISTRIBUTION WIDTH 16.2 % (11.5-14.0); SEGMENTED NEUTROPHILS % (AUTO) 70.3 % (42-78); TOTAL CELLS COUNTED % (AUTO) 100 %; WHITE BLOOD COUNT 10.4 10^3/uL (4.0-10.5)
[2019-05-17 10:57] LABS: ALBUMIN 3.9 g/dL (3.5-5.0); ALKALINE PHOSPHATASE 100 U/L (38-126); ANION GAP 9 (5-19); ASPARTATE AMINO TRANSFERASE 21 U/L (17-59); BILIRUBIN,TOTAL 0.5 mg/dL (0.2-1.3); BLOOD UREA NITROGEN 13 mg/dL (7-20); CALCIUM 9.2 mg/dL (8.4-10.2); CARBON DIOXIDE 26 mmol/L (22-30); CHLORIDE 106 mmol/L (98-107); CHOLESTEROL 161.97 mg/dL (0-200); GLUCOSE 86 mg/dL (75-110); POTASSIUM 4.2 mmol/L (3.6-5.0); TOTAL PROTEIN 7.1 g/dL (6.3-8.2); TRIGLYCERIDES 267 mg/dL (<150)
[2019-05-17 11:08] LABS: DIRECT LDL 92 mg/dL (<100)
[2019-05-17 11:24] LABS: VLDL CHOLESTEROL 53.4 mg/dL (10-31)
== END ==
LOC: OD 09:32
PROVIDERS: ATTEND Internal Medicine Nephrology
DX: F25.0 Schizoaffective disorder, bipolar type (principal); N18.3 Chronic kidney disease, stage 3 (moderate); Z79.899 Other long term (current) drug therapy
CPT/HCPCS: 36415; 80053; 80061; 80164; 83036; 84132; 85025

== ENCOUNTER → 2019-08-27 | Outpatient (CLI) | payer MEDICAID ==
[2019-08-27 13:49] LABS: ANION GAP 9 (5-19); BLOOD UREA NITROGEN 16 mg/dL (7-20); CARBON DIOXIDE 26 mmol/L (22-30); CHLORIDE 104 mmol/L (98-107); GLUCOSE 94 mg/dL (75-110); POTASSIUM 3.9 mmol/L (3.6-5.0)
== END ==
LOC: OD 12:34
PROVIDERS: ATTEND Internal Medicine Nephrology
DX: I12.9 Hypertensive chronic kidney disease with stage 1 through stage 4 chronic kidney disease, or unspecified chronic kidney disease (principal); N18.3 Chronic kidney disease, stage 3 (moderate); E11.22 Type 2 diabetes mellitus with diabetic chronic kidney disease; E87.6 Hypokalemia
CPT/HCPCS: 36415; 80048; 83735

== ENCOUNTER → 2019-12-25 | Outpatient (CLI) | payer MEDICAID ==
--- NOTE | 2019-12-25 15:15 | RADIOLOGY REPORT (SQ) ---
EXAM DESCRIPTION: NM GASTRIC EMPTYING STUDY IMAGES COMPLETED DATE/TIME: 12/25/2019 12:34 pm REASON FOR STUDY: R11.2 NAUSEA WITH VOMITING, UNSPECIFIED R11.2 NAUSEA WITH VOMITING, UNSPECIFIED COMPARISON: 09/15/2016 RADIONUCLIDE AND DOSE: 2.2 millicuries Tc-99m Sulfur Colloid. A wide variety of solid foods have been used. The route of agent administration: Oral. TECHNIQUE: 1 minute serial static imaging performed at time of meal, 1 hour, 2 hours, 3 hours, and 4 hours as needed. Once stomach reaches 90% emptying, the test is complete. Image intensity values pl otted with respect to time with linear regression algorithm. LIMITATIONS: None. FINDINGS: Patient was observed for 4 hours. Immediate post meal serves as baseline. Gastric emptying at 30 minutes was 7%. Gastric emptying at 60 minutes was 25% Gastric emptying at 90 minutes was 45%. Gastric emptying at 120 minutes was 62%. Gastric emptying at 240 minutes was 93%. Normal values: 60 minutes: 30-90% retained. If less than 30%, abnormally rapid emptying. If greater than 90%, delaye d gastric emptying. 120 minutes: <60% retained. If greater than 60%, delayed gastric emptying. 240 minutes: <10% retained. If greater than 10%, delayed gastric emptying. IMPRESSION: Normal gastric emptying. TECHNICAL DOCUMENTATION: JOB ID: [id number] 2010 [employer]- All Rights Reserved rev-08/12 Reading location - IP/workstation name: [email or web address]
== END ==
LOC: RAD 07:38
PROVIDERS: ATTEND Internal Medicine Gastroenterology
DX: R11.2 Nausea with vomiting, unspecified (principal)
CPT/HCPCS: 78264; A9541